=== PATIENT | male | born 1970 | race Caucasian/White ===

== ENCOUNTER → 2019-08-10 13:58 | Outpatient (BNVA) | payer OTHER, SELFPAY | PROVIDERS: Family Provider Internal Medicine; PCP Internal Medicine; Visit Provider Family Medicine | DX: R09.81 Nasal congestion (principal); R50.9 Fever, unspecified | CPT/HCPCS: 87804 ==

== ENCOUNTER 2021-05-13 19:38 | Emergency (ER) | payer OTHER, SELFPAY ==
--- NOTE | 2021-05-13 19:43 | XRR_ITS ---
PROCEDURE INFORMATION: Exam: XR Chest Exam date and time: 05/13/2021 7:43 PM Age: 51 years old Clinical indication: Cough TECHNIQUE: Imaging protocol: XR of the chest. Views: 1 view. COMPARISON: No relevant prior studies available. FINDINGS: The lungs are clear of infiltrate. There are no pleural effusions or pneumothorax. The heart size and pulmonary vascularity are normal. There is elevation of the right hemidiaphragm. XR/XR chest 1V portable [id number] IMPRESSION: No active disease. Radiation Dose CTDIVOL = (mGy): DLP = (mGy-cm)
[2021-05-13 20:14] VITALS: BP 137/89; PULSE 96; RESP 18; TEMP 36.8; O2SAT 95; BMI 34.8
--- NOTE | 2021-05-13 20:28 | W.ED.SOB ---
HPI - SOB/Dyspnea General: Chief Complaint: Shortness of Breath/Dyspnea Stated Complaint: congested, cough, runny nose Time Seen by Provider: 05/13/21 20:28 History of Present Illness: HPI Narrative: Patient comes in with sinus drainage and cough for the last 3 days. Patient states on he started with significant sinus pressure and pain. Patient reports that he gets this every year about this time. Patient reports that his head to COVID-19 vaccinations. Patient appears mildly unwell but not toxic. Patient appears no acute distress. Review of Systems General: Reports: 10 or more systems reviewed and unremarkable except in HPI and below ENMT: Reports: sinus pain Resp: Reports: non-productive cough PFSH ED PFSH: Social History Smoking and tobacco status: never smoked Alcohol intake: never Physical Exam Const: COMMON NORMALS: no acute distress and patient oriented x3 GENERAL APPEARANCE: cooperative HENMT: COMMON NORMALS: normocephalic HEAD & SCALP: normal to inspection and normocephalic NOSE: Nasal discharge present purulent TYMPANIC MEMBRANE: TM abnormal TM laterality: bilateral bulging, dull and erythematous MOUTH: Normal oral and palatal mucosa present THROAT: posterior oropharynx normal Eye: GENERAL EYE: appearance normal, both eyes and all related structures Neck/C-Spine: COMMON NORMALS: full ROM Chest: COMMONS NORMALS: normal inspection of the chest Resp: COMMON NORMALS: normal respiratory effort EFFORT & INSPECTION: Yes able to speak in complete sentences Cardio: COMMON NORMALS: regular rate and regular rhythm RATE: regular rate RHYTHM: regular rhythm GI: COMMON NORMALS: non-tender : COMMON NORMALS: Yes no CVA tenderness BLADDER/KIDNEY EXAM: Yes no CVA tenderness Back/Pelvis: COMMON NORMALS: no CVA tenderness and thoracic and lumbar spine normal to inspection Extremity: COMMON NORMALS: normal to inspection Neuro: COMMON NORMALS: patient oriented x3 and moves all extremities Psych: COMMON NORMALS: mental status grossly normal and cooperative Skin: COMMON NORMALS: no rashes or lesions noted GENERAL SKIN EXAM: no rashes or lesions noted Course Vital Signs: Vital signs: Vital Signs Temperature 98.2 F 05/13/21 20:14 Pulse Rate 96 05/13/21 20:14 Respiratory Rate 18 05/13/21 20:14 Blood Pressure 137/89 05/13/21 20:14 Pulse Oximetry 95 05/13/21 20:14 MDM - SOB/Dyspnea MDM Narrative: Medical decision making narrative: 51-year-old male comes in with sinus pressure and pain. Patient also reports occasional cough. Patient reports this is similar to his previous episodes of sinusitis. On exam patient has some purulent nasal drainage. Sinus pain on palpation. Skin is warm and dry. Vital signs are normal. Differential diagnosis includes but not limited to COVID-19, rhinosinusitis, pneumonia, upper respiratory infection. COVID-19 test was negative. Chest x-ray was unremarkable. I went ahead and treated patient as he states it works well for him. We will start him on some Augmentin 1 tablet twice a day for 7 days. Patient was given a gram of Rocephin to get him started with antibiotics. Patient was also given 1 dose of dexamethasone 10 mg. Patient was written for some codeine cough syrup to help with his cough so he can sleep at night. Patient reported understanding of care plan and agreed. Lab Data: Labs: Lab Results 05/13/21 20:40 SARS-CoV-2 Ag (Rap id) Negative (Negative) Discharge Plan Discharge Patient Disposition: Home Clinical Impression: Acute rhinosinusitis Condition: Stable Prescriptions: New Augmentin 875-125 mg tablet 1 tab PO BID Qty: 14 RF: 0 codeine-guaifenesin 10-100 mg/5 mL liquid 5 ml PO Q6H PRN (Reason: cough) Qty: 118 RF: 0 No Action prednisone 20 mg tablet 40 mg PO DAILY 5 Days Qty: 10 RF: 0 lisinopril 20 mg tablet 20 mg PO DAILY RF: 0 Discharge Orders: Discharge ED (Routine); Ordered 05/13/21 Ordered By: Vasiliy Barry Referrals: Jessica Ly MD [Primary Care Provider] - Discharge Diet: Usual diet Discharge Activity: Increase activity as tolerated Patient Instructions: Sinusitis (ED), Opioid Safety Activity Restrictions/Additional Instructions: Home and rest. Drink plenty of fluids. Activity as tolerated. Follow-up with primary care in 1 week. Return to the ER for worsening symptoms or new concerns. 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
[2021-05-13] MEDS: cefTRIAXone 1,000 MG in lidocaine 1% 2.1 ML 2.1 MG IM (20:53)
[2021-05-13] MEDS: dexamethasone 10 mg/mL INJ IM (20:53)
[2021-05-13 21:37] LABS: SARS Covid-2 Antigen Negative (Negative)
[2021-05-13] MEDS: guaiFENesin-codeine UDC 10 mL PO (22:07)
== END 2021-05-13 22:05 | disposition home or self-care (01) ==
PROVIDERS: Emergency Medicine; Emergency Provider Nurse Practitioner Family; PCP Internal Medicine
DX: J01.90 Acute sinusitis, unspecified (principal); Z20.822 Contact with and (suspected) exposure to COVID-19
CPT/HCPCS: 71045; 87426; 96372; 99283; J0696; J1100

== ENCOUNTER → 2021-06-29 16:48 | Outpatient (BNVA) | payer OTHER, SELFPAY | PROVIDERS: PCP Internal Medicine; Visit Provider Family Medicine | DX: E11.9 Type 2 diabetes mellitus without complications (principal); E78.2 Mixed hyperlipidemia; I10 Essential (primary) hypertension; N52.9 Male erectile dysfunction, unspecified; Z76.89 Persons encountering health services in other specified circumstances; Z11.59 Encounter for screening for other viral diseases | CPT/HCPCS: 80053; 80061; 83036; 83721; 84153; 84443; 85025; 86803 ==

== ENCOUNTER → 2022-05-15 17:08 | Outpatient (BNVA) | payer SELFPAY | PROVIDERS: PCP Family Medicine; Visit Provider Family Medicine | DX: J01.90 Acute sinusitis, unspecified (principal); B96.89 Other specified bacterial agents as the cause of diseases classified elsewhere; E11.9 Type 2 diabetes mellitus without complications; E78.2 Mixed hyperlipidemia; I10 Essential (primary) hypertension | CPT/HCPCS: 80053; 80061; 83036; 84153; 85025 ==

== ENCOUNTER 2022-10-06 11:04 | Outpatient (CLI) | payer OTHER, SELFPAY ==
--- NOTE | 2022-10-06 | USCV_ITS ---
Bill Molina Age: 52 Gender: M : 1970 Exam Date: 10/06/2022 11:19 Ordering Phys: Otto Josue DO Technologist: Exam Location: [facility] – [place] Indication: abnormal ekg BP: 110 / 68 HR: 76 Rhythm: Sinus Technical Quality: Adequate MEASUREMENTS (Male / Female) Normal Values 2D ECHO LV Diastolic Diameter PLAX 4.5 cm 4.2 - 5.9 / 3.9 - 5.3 cm LV Systolic Diameter PLAX 3.3 cm IVS Diastolic Thickness 1.3 cm 0.6 - 1.0 / 0.6 - 0.9 cm IVS Systolic Thickness 1.8 cm LVPW Diastolic Thickness 1.1 cm 0.6 - 1.0 / 0.6 - 0.9 cm LVPW Systolic Thickness 1.5 cm LVOT Diameter 2.1 cm LV Ejection Fraction 2D Teich 42.8 % LV Ejection Fraction MOD 2C 77.0 % LV Ejection Fraction 2C AL 77.7 % LA Diameter 4.5 cm Aorta at Sinotubular Diameter 2.7 cm IVC Diameter 1.6 cm M-MODE Aortic Annulus Diameter 3.6 cm LA Ao Ratio MM 1.3 MV E Point Septal Separation 1.3 cm DOPPLER AV Peak Velocity 109.0 cm/s LVOT Peak Velocity 79.0 cm/s AV Area Cont Eq vti 2.5 cm squared AV Area Cont Eq pk 2.5 cm squared MV Area PHT 8.5 cm squared Mitral E to A Ratio 1.2 MV E' Velocity 43.5 cm/s Mitral E to MV E' Ratio 8.1 Mitral E to LV E' Lateral Ratio 7.5 Mitral E to LV E' Septal Ratio 8.8 TR Peak Velocity 198.0 cm/s TR Peak Gradient 15.7 mmHg TV Peak E Velocity 88.0 cm/s Right Atrial Pressure 3.0 mmHg Pulmonary Artery Systolic Pressu 18.7 mmHg RV Acceleration Time 0.2 s FINDINGS Left Ventricle Left ventricle is normal in size. LV systolic function is normal with EF 55 to 60%. No regional wall motion normalities are seen Right Ventricle Normal in size and function Right Atrium Normal in size Left Atrium Normal in size Mitral Valve Structurally normal mitral valve. Trace mitral regurgitation. Aortic Valve Structurally normal aortic valve. No significant stenosis or regurgitation. Tricuspid Valve Mild tricuspid regurgitation. Pulmonary artery systolic pressure is normal. Pulmonic Valve Not well-visualized Pericardium Normal Aorta Normal in size IVC Appears to be normal CONCLUSIONS LV systolic function is normal with EF of 55-60% Trace mitral regurgitation. Mild tricuspid regurgitation. No comparison studies are available Mane Hodge MD (Electronically Signed) Final Date: 06 October 2022 13:52 S
== END 2022-10-06 11:05 | disposition home or self-care (01) ==
LOC: RAD 11:10
PROVIDERS: PCP Family Medicine; Visit Provider Family Medicine
DX: R01.2 Other cardiac sounds (principal); I07.1 Rheumatic tricuspid insufficiency
CPT/HCPCS: 93306

== ENCOUNTER → 2023-02-05 15:24 | Outpatient (BNVA) | payer OTHER, SELFPAY | PROVIDERS: PCP Family Medicine; Visit Provider Family Medicine | DX: E78.2 Mixed hyperlipidemia (principal); M79.18 Myalgia, other site; E11.9 Type 2 diabetes mellitus without complications | CPT/HCPCS: 80048; 80061; 83036; 84443 ==

== ENCOUNTER → 2023-02-14 10:18 | Outpatient (BNVA) | payer OTHER, SELFPAY | PROVIDERS: PCP Family Medicine; Visit Provider Nurse Practitioner Family | DX: R51.9 Headache, unspecified (principal); J06.9 Acute upper respiratory infection, unspecified | CPT/HCPCS: 87426 ==

== ENCOUNTER → 2023-05-29 08:11 | Outpatient (BNVA) | payer OTHER, SELFPAY | PROVIDERS: PCP Family Medicine; Visit Provider Family Medicine | DX: E78.2 Mixed hyperlipidemia (principal); I10 Essential (primary) hypertension | CPT/HCPCS: 80053; 80061; 83036; 84443; 85025 ==

== ENCOUNTER → 2024-02-25 16:32 | Outpatient (BNVA) | payer BC, SELFPAY | PROVIDERS: PCP Family Medicine; Visit Provider Family Medicine | DX: Z12.5 Encounter for screening for malignant neoplasm of prostate (principal); I10 Essential (primary) hypertension; E11.65 Type 2 diabetes mellitus with hyperglycemia; E78.2 Mixed hyperlipidemia; E55.9 Vitamin D deficiency, unspecified; R79.89 Other specified abnormal findings of blood chemistry | CPT/HCPCS: 80053; 80061; 81000; 82043; 82306; 82607; 83036; 84443; G0103 ==

== ENCOUNTER → 2024-05-26 14:30 | Outpatient (BNVA) | payer BC, SELFPAY | PROVIDERS: PCP Family Medicine; Visit Provider Family Medicine | DX: E11.65 Type 2 diabetes mellitus with hyperglycemia (principal); E11.9 Type 2 diabetes mellitus without complications; E78.2 Mixed hyperlipidemia; J30.2 Other seasonal allergic rhinitis; J30.9 Allergic rhinitis, unspecified; J01.01 Acute recurrent maxillary sinusitis; I10 Essential (primary) hypertension; J30.89 Other allergic rhinitis; Z76.89 Persons encountering health services in other specified circumstances; N52.9 Male erectile dysfunction, unspecified | CPT/HCPCS: 80048; 82785; 83036; 86003 ==

== ENCOUNTER → 2024-05-28 15:38 | Outpatient (BNVA) | payer BC, SELFPAY | PROVIDERS: PCP Family Medicine; Visit Provider Family Medicine | DX: J30.9 Allergic rhinitis, unspecified (principal); J30.89 Other allergic rhinitis | CPT/HCPCS: 82785; 86001; 86003 ==

== ENCOUNTER → 2025-03-23 07:55 | Outpatient (BNVA) | payer OTHER, SELFPAY | PROVIDERS: PCP Family Medicine; Visit Provider Podiatrist Foot & Ankle Surgery | DX: E11.65 Type 2 diabetes mellitus with hyperglycemia (principal); Q66.89 Other specified congenital deformities of feet; M84.375A Stress fracture, left foot, initial encounter for fracture; Z79.84 Long term (current) use of oral hypoglycemic drugs | CPT/HCPCS: 73630 ==

== ENCOUNTER → 2025-03-29 14:00 | Outpatient (BNVA) | payer OTHER, SELFPAY | PROVIDERS: PCP Family Medicine; Visit Provider Nurse Practitioner Family | DX: E11.65 Type 2 diabetes mellitus with hyperglycemia (principal) | CPT/HCPCS: 83036 ==

== ENCOUNTER 2025-05-12 08:53 | Emergency (ER) | payer OTHER, SELFPAY ==
[2025-05-12 08:58] VITALS: BP 167/128; PULSE 85; RESP 16; TEMP 36.8; O2SAT 98; BMI 32.1
--- NOTE | 2025-05-12 09:02 | CT_ITS ---
WS: [id number] CT FACIAL BONES TECHNIQUE: Noncontrast facial bones with coronal and sagittal reformatted images. CLINICAL INFORMATION: right cheek injury COMPARISON: None. DLP: 681.[address] scans at [facility] use at least one of these dose optimization techniques: automated exposure control; mA and/or kV adjustment per patient size (includes targeted exams where dose is matched to clinical indication); or iterative reconstruction. FINDINGS: Mild mucosal thickening paranasal sinuses. Mastoid air cells are well aerated. Normal posterior nasopharynx. Normal nasal bones. Both zygoma are intact. Normal pterygoid plates. Normal lamina papyracea. Lateral orbits are intact. No evidence of mandibular fracture or dislocation. Parotid glands appear normal. Normal submandibular glands. CT/CT facial bones wo con* [id number] IMPRESSION: No acute facial fractures
--- NOTE | 2025-05-12 09:02 | CT_ITS ---
WS: [id number] CT HEAD TECHNIQUE: Noncontrast CT of the head obtained from the skullbase to the vertex. CLINICAL INFORMATION: head injury COMPARISON: None. DLP: 1317.[address] scans at [facility] use at least one of these dose optimization techniques: automated exposure control; mA and/or kV adjustment per patient size (includes targeted exams where dose is matched to clinical indication); or iterative reconstruction. FINDINGS: No evidence of intracranial hemorrhage or mass effect. Ventricular system and basal cisterns are patent. Mild small vessel changes with mild parenchymal volume loss. No extra-axial fluid collections. No evidence of mass or mass effect. Normal akers-white differentiation. Mild mucosal thickening the paranasal sinuses. Mastoid air cells are well aerated CT/CT head wo con* [id number] IMPRESSION: 1. No evidence of intracranial hemorrhage or mass effect. 2. No acute intracranial findings.
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
[2025-05-12] MEDS: tetanus-dipt-pertussis 0.5 mL SDV IM (09:52)
--- OUTSIDE RECORDS SUMMARY | 2025-05-12 11:39 | XMS_ITS | Patient Health Record ---
Author Organization [facility] Address [address] [place] [address] Care Team Providers Care Heel Splitter Name Role Phone Dr Otto Josue DO Primary Care Provider Amishajaney rosalba Werner Arina Ambar [phone] Reason For Referral No Information Medications Medication SIG (Take, Route, Frequency, Duration) Notes Start Date End Date Status Medrol (Amrik) 4 MG Tablet as directed Orally daily; Duration: 6 days *please review for potential update for e-prescription and drug interaction check* 02/10/2015 Not-Taking ZyrTEC 10 MG Tablet 1 tablet Orally Once a day; Duration: 30 day(s) *please review for potential update for e-prescription and drug interaction check* 12/31/2015 Active Flonase Allergy Relief 50 MCG/ACT Suspension 2 spray each nostril Nasally Once a day; Duration: 30 day(s) 12/31/2015 Active Zithromax Z-Amrik 250 MG Tablet 2 tablets on the first day, then 1 tablet daily for 4 days Orally Once a day; Duration: 5 day(s) 02/10/2015 Not-Taking Mucinex 600 MG Tablet Extended Release 12 Hour 1 tablet as needed Orally every 12 hrs; Duration: 14 days 12/31/2015 Active Amoxil 500 MG Capsule 1 capsule Orally every 8 hrs; Duration: 10 day(s) *please review for potential update for e-prescription and drug interaction check* 12/06/2015 Active Social History Social History Additional Details Category Social Info Options Details zzMigrated Social History Migrated Social History Social History(Smoking(MU):):Smoki ng Status: Non-smoker ;Social History(Tea):yes ;Social History(Alcohol:):no ;Social History(Drug use:):no ;Social History(Second-hand Smoke Exposure):no ;Social History(Tobacco Use):no ; Problems Problem Type SNOMED Code ICD Code Onset Dates Problem Status W/U Status Risk Notes Problem Acute sinusitis (03639988) Acute recurrent sinusitis, unspecified (J01.91) Active confirmed Plan Of Treatment No Information Insurance Providers Payer Name Payer Address Payer Phone Subscriber Number Group Number Insured Name Patient Relationship to Insured Coverage Start Date Coverage End Date [facility] [employer] [employer] [place] Plan [address] [place] [id number] [id number] Bill Molina Self - patient is the insured
--- OUTSIDE RECORDS SUMMARY | 2025-05-12 11:39 | XMS_ITS | Patient Health Record ---
Author Organization [facility] Address [address] [place] [address] Care Team Providers Care Nutrition Instructor Name Role Phone Otto Josue DO Primary Care Provider Unavail able DARLENE SOMMERS Unavailable [phone] Reason For Referral No Information Medications Medication SIG (Take, Route, Frequency, Duration) Notes Start Date End Date Status Medrol (Amrik) 4 MG as directed Orally daily; Duration: 6 days *please review for potential update for e-prescription and drug interaction check* *Reorder from [employer] for eRx and Interaction Alerts* 02/10/2015 Not-Taking Mucinex 600 MG 1 tablet as needed Orally every 12 hrs; Duration: 14 days 12/31/2015 Active ZyrTEC 10 MG 1 tablet Orally Once a day; Duration: 30 day(s) *please review for potential update for e-prescription and drug interaction check* *Reorder from [employer] for eRx and Interaction Alerts* 12/31/2015 Active Flonase Allergy Relief 50 MCG/ACT 2 spray each nostril Nasally Once a day; Duration: 30 day(s) 12/31/2015 Active Amoxil 500 MG 1 capsule Orally every 8 hrs; Duration: 10 day(s) *please review for potential update for e-prescription and drug interaction check* *Reorder from [employer] for eRx and Interaction Alerts* 12/06/2015 Active Zithromax Z-Amrik 250 MG 2 tablets on the first day, then 1 tablet daily for 4 days Orally Once a day; Duration: 5 day(s) 02/10/2015 Not-Taking Problems Problem Type SNOMED Code ICD Code Onset Dates Problem Status W/U Status Risk Notes Problem Acute sinusitis (04997935) Acute recurrent sinusitis, unspecified (J01.91) Active confirmed Plan Of Treatment No Information Insurance Providers Payer Name Payer Address Payer Phone Subscriber Number Group Number Insured Name Patient Relationship to Insured Coverage Start Date Coverage End Date [facility] [place] Plan [address] [place] [id number] [phone] [id number] Bill Molina Self - patient is the insured
== END 2025-05-12 10:09 | disposition home or self-care (01) ==
PROVIDERS: Emergency Provider Emergency Medicine; PCP Family Medicine
DX: S01.411A Laceration without foreign body of right cheek and temporomandibular area, initial encounter (principal); Z79.84 Long term (current) use of oral hypoglycemic drugs; E11.9 Type 2 diabetes mellitus without complications; I10 Essential (primary) hypertension; E78.5 Hyperlipidemia, unspecified; W22.8XXA Striking against or struck by other objects, initial encounter
CPT/HCPCS: 70450; 70486; 90715; 99284